=== PATIENT | male | born 1995 | race African-American/Black ===

== ENCOUNTER 2018-09-03 17:33 | Emergency (ER) | payer SELFPAY ==
[~2018-09-03] VITALS: Ht 170.2 cm; Wt 71.2 kg
[2018-09-03 18:24] LABS: AMPHETAMINE/METHAMPHETAMINE NEG (NEG); BARBITURATES NEG (NEG); BENZODIAZEPINES NEG (NEG); CANNABINOIDS NEG (NEG); COCAINE NEG (NEG); METHADONE NEG (NEG); OPIATES NEG (NEG); PHENCYCLIDINE NEG (NEG)
[2018-09-03 18:29] LABS: BILIRUBIN,URINE NEG (NEG); CLARITY,URINE CLOUDY; COLOR,URINE STRAW; GLUCOSE,URINE NEG (NEG)
[2018-09-03 18:30] LABS: BACTERIA,URINE FEW /HPF (0-FEW); NITRITE,URINE NEG (NEG); RBC,URINE RARE /HPF (0-2); SQUAMOUS EPITHELIAL CELL,UR OCC /LPF; UROBILINOGEN,URINE 1 mg/dL (0.2 mg/dL); WBC,URINE 20-40 /HPF (0-4)
--- NOTE | 2018-09-03 18:37 | PHYS DOC ---
Adult General Chief Complaint Chief Complaint: SUICDAL IDEATION HPI HPI 22-year-old male presents with suicidal ideation. She does have intermittent thoughts of suicide for several months. Usually it is not persistent. He has had more thoughts lately. Today the patient was so severe use a gun that is hidden somewhere in his house or cut himself with a knife. The patient was frightened by the way he felt so he called a suicide hotline. They advised that he come in for further evaluation. Patient denies drug use except for occasional marijuana. He denies alcohol consumption. He's had no previous suicide attempts. He has no medical complaints at this time. Review of Systems Review of Systems Constitutional: Denies fever or chills [] Eyes: Denies change in visual acuity, redness, or eye pain [] HENT: Denies nasal congestion or sore throat [] Respiratory: Denies cough or shortness of breath [] Cardiovascular: No additional information not addressed in HPI [] GI: Denies abdominal pain, nausea, vomiting, bloody stools or diarrhea [] : Denies dysuria or hematuria [] Musculoskeletal: Denies back pain or joint pain [] Integument: Denies rash or skin lesions [] Neurologic: Denies headache, focal weakness or sensory changes [] Endocrine: Denies polyuria or polydipsia [] All other systems were reviewed and found to be within normal limits, except as documented in this note. Physical Exam Physical Exam Constitutional: Well developed, well nourished, no acute distress, non-toxic appearance. [] HENT: Normocephalic, atraumatic, bilateral external ears normal, oropharynx moist, no oral exudates, nose normal. [] Eyes: PERRLA, EOMI, conjunctiva normal, no discharge. [] Neck: Normal range of motion, no tenderness, supple, no stridor. [] Cardiovascular:Heart rate regular rhythm, no murmur [] Lungs & Thorax: Bilateral breath sounds clear to auscultation [] Abdomen: Bowel sounds normal, soft, no tenderness, no masses, no pulsatile masses. [] Skin: Warm, dry, no erythema, no rash. [] Back: No tenderness, no CVA tenderness. [] Extremities: No tenderness, no cyanosis, no clubbing, ROM intact, no edema. [] Neurologic: Alert and oriented X 3, normal motor function, normal sensory function, no focal deficits noted. [] Psychologic: Affect flat, judgement normal, mood depressed. [] Current Patient Data Lab Results Laboratory Tests Test 09/03/18 17:30 Urine Collection Type Unknown Urine Color Straw Urine Clarity Cloudy Urine pH 7.0 Urine Specific [place] >=1.030 Urine Protein 30 mg/dl (NEG-TRACE) Urine Glucose (UA) Neg mg/dL (NEG) Urine Ketones (Stick) Neg mg/dL (NEG) Urine Blood Neg (NEG) Urine Nitrite Neg (NEG) Urine Bilirubin Neg (NEG) Urine Urobilinogen Dipstick 1 mg/dL (0.2 mg/dL) Urine Leukocyte Esterase Large (NEG) Urine RBC Rare /HPF (0-2) Urine WBC 20-40 /HPF (0-4) Urine Squamous Epithelial Cells Occ /LPF Urine Bacteria Few /HPF (0-FEW) Urine Mucus Mod /LPF Urine Opiates Screen Neg (NEG) Urine Methadone Screen Neg (NEG) Urine Barbiturates Neg (NEG) Urine Phencyclidine Screen Neg (NEG) Urine Amphetamine/Methamphetamine Neg (NEG) Urine Benzodiazepines Screen Neg (NEG) Urine Cocaine Screen Neg (NEG) Urine Cannabinoids Screen Neg (NEG) Urine Ethyl Alcohol Neg (NEG) EKG EKG Sinus rhythm, rate 58, normal axis, no ST elevations or depressions.[] Radiology/Procedures Radiology/Procedures [] Course & Med Decision Making Course & Med Decision Making Pertinent Labs and Imaging studies reviewed. (See chart for details) Patient's labs are unremarkable. His urine is suggestive of UTI. I will treat him with Keflex for 5 days. We will give his first dose in the ED. The patient had a psych consult. They agreed that he could facilitate a contract for safety and follow up outpatient with the [facility] tomorrow. The patient is stable for discharge at this time. [] Dragon Disclaimer Dragon Disclaimer This electronic medical record was generated, in whole or in part, using a voice recognition dictation system. Departure Departure: Impression: Primary Impression: Suicidal ideation Additional Impressions: Depression UTI (urinary tract infection) Disposition: HOME, SELF-CARE Condition: GUARDED Patient Instructions: Suicidal Feelings, How to Help Yourself, Urinary Tract Infection, [id number] Scripts Cephalexin (KEFLEX) 500 Mg Capsule 1 CAP PO TID for uti for 5 Days, #15 CAP Prov: JA SILVA DO 09/03/18 Problem Qualifiers Additional Impressions: Depression Depression Type: major depressive disorder Major depression recurrence: single episode Active/Remission status: currently active Major depression episode severity: severe Psychotic features: without psychotic features Qualified Codes: F32.2 - Major depressive disorder, single episode, severe without psychotic features UTI (urinary tract infection) Urinary tract infection type: acute cystitis Hematuria presence: without hematuria Qualified Codes: N30.00 - Acute cystitis without hematuria JA SILVA DO Sep 03, 2018 18:37
[2018-09-03 18:45] VITALS: BP 134/73
[2018-09-03 18:52] LABS: BASO % 1 % (0-3); EOS % 1 % (0-3); HEMATOCRIT 42.2 % (39.0-53.0); HEMOGLOBIN 14.1 g/dL (13.0-17.5); LYMPH # 1.3 x10^3/uL (1.0-4.8); LYMPH % 21 % (24-48); MEAN CORPUSCULAR HEMOGLOBIN 31 pg (25-35); MEAN CORPUSCULAR HGB CONC 33 g/dL (31-37); MEAN CORPUSCULAR VOLUME 93 fL (79-100); MONO # 0.5 x10^3/uL (0.0-1.1); MONO % 9 % (0-9); NEUT # 4.3 x10^3uL (1.8-7.7); NEUT % 69 % (31-73); PLATELET COUNT 264 x10^3/uL (140-400); RED BLOOD COUNT 4.56 x10^6/uL (4.30-5.70); RED CELL DISTRIBUTION WIDTH 12.9 % (11.5-14.5); WHITE BLOOD COUNT 6.2 x10^3/uL (4.0-11.0)
[2018-09-03 19:06] LABS: ALBUMIN 3.9 g/dL (3.4-5.0); ALBUMIN/GLOBULIN RATIO 0.8 (1.0-1.7); CALCIUM 8.9 mg/dL (8.5-10.1); GFR 93.4; TOTAL BILIRUBIN 0.3 mg/dL (0.2-1.0); TOTAL PROTEIN 8.5 g/dL (6.4-8.2)
--- NOTE | 2018-09-03 21:40 | EKG ---
[address] [address] Test Date: 2018-09-03 Test Time: 18:19:43 Pat Name: CLAUDIO LEUNG Department: Room: Gender: M Service Order Taker: : 1995 Requested By: JA SILVA Order Number: [id number] Reading MD: Measurements Intervals [place] Rate: 58 P: 54 MO: 150 QRS: 45 QRSD: 80 T: 31 QT: 362 QTc: 358 Interpretive Statements SINUS RHYTHM ATRIAL PREMATURE COMPLEX(ES) NO SPECIFIC ECG ABNORMALITIES RI6.01 No previous ECG available for comparison
[2018-09-03] MEDS ORDERED: CEPH-264 PO (23:25)
[2018-09-03] MEDS: CEPHALEXIN 250 MG CAPSULE PO ONE (23:52)
--- NOTE | 2018-09-04 00:08 | RAD ---
Examination: CHEST PA LATERAL History: psych eval
no complaints
no history Comparison/Correlation: None Findings: PA and lateral views of chest were obtained. Heart size and pulmonary vasculature are normal. No infiltrate or pleural effusion. Bony structures are unremarkable no pneumothorax. Impression: No active disease. Electronically signed by: Kartik Mishra MD (09/04/2018 12:03 AM) [facility]
== END 2018-09-03 23:52 | disposition home or self-care (01) ==
LOC: ER 17:33
DX: R45.851 Suicidal ideations (principal); F32.2 Major depressive disorder, single episode, severe without psychotic features; N30.00 Acute cystitis without hematuria
CPT/HCPCS: 36415; 71046; 80053; 80307; 81001; 85025; 87086; 93005; 99284